=== PATIENT | male | born 1985 | race African-American/Black ===

== ENCOUNTER 2019-02-03 15:07 | Emergency (ER) | payer MEDICAID, OTHER ==
[~2019-02-03] VITALS: Ht 185.4 cm; Wt 91.0 kg
[2019-02-03] MEDS ORDERED: CEFTRIAXONE SODIUM 250 MG/VIAL IM ONE (18:15)
[2019-02-03] MEDS ORDERED: AZITHROMYCIN 500 MG TABLET PO SCH (18:15)
[2019-02-03 18:29] LABS: CLARITY URINE TURBID (CLEAR); COLOR URINE DARK YELLOW (YELLOW); KETONES URINE 1+ (NEGATIVE); LEUKOCYTE ESTERASE URINE 3+ (NEGATIVE); NITRITE URINE NEGATIVE (NEGATIVE); OCCULT BLOOD URINE 2+ (NEGATIVE); PH URINE 5.5 (4.5-8.0); PROTEIN URINE 1+ (NEGATIVE); SPECIFIC GRAVITY URINE 1.035 (1.005-1.030)
[2019-02-03 18:31] VITALS: BP 129/74
== END 2019-02-03 18:21 | disposition home or self-care (01) ==
LOC: ER 15:07
DX: N34.2 Other urethritis (principal); F17.210 Nicotine dependence, cigarettes, uncomplicated
CPT/HCPCS: 81003; 87086; 96372; 99283; J0696

== ENCOUNTER 2021-02-09 09:21 | Emergency (ER) | payer MEDICAID, OTHER ==
[~2021-02-09] VITALS: Ht 177.8 cm; Wt 92.0 kg
[2021-02-09 09:25] VITALS: BP 127/84
== END 2021-02-09 10:57 | disposition home or self-care (01) ==
LOC: ER 09:21
DX: S83.8X2A Sprain of other specified parts of left knee, initial encounter (principal); J45.909 Unspecified asthma, uncomplicated; F12.10 Cannabis abuse, uncomplicated; X58.XXXA Exposure to other specified factors, initial encounter; Y93.89 Activity, other specified; Y92.89 Other specified places as the place of occurrence of the external cause; Y99.8 Other external cause status
CPT/HCPCS: 99283; L1830; Z7610